=== PATIENT | female | born 1970 | race Caucasian/White ===

== ENCOUNTER 2024-08-21 13:41 | Inpatient (IN) | payer OTHER, SELFPAY ==
[2024-08-21 14:26] VITALS: BP 138/78; PULSE 73; RESP 18; TEMP 36.6; O2SAT 97
[2024-08-21 14:27] VITALS: BMI 26.8
[2024-08-21] MEDS: Nicotine Polacrilex Lozenge 4 MG LOZENGE BUCCAL ×2 (15:48→21:48)
[2024-08-21] MEDS: hydrOXYzine HCL 25 MG TABLET PO (15:49)
--- OUTSIDE RECORDS SUMMARY | 2024-08-21 16:15 | XMS_ITS | Encounter Summary ---
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 Name Role Phone Unavailable Primary Care Provider Unavailabl e Encounter Details Date Type Department Care Team (Late st Contact Info) Description 07/13/2011 Clinical Conversion Encounter GENERAL CONVERSION Clara Victoria MD Social History Tobacco Use Types Packs/Day Years Used Date Smoking Tobacco: Never Assessed Comments Unknown Sex and Gender Information Value Date Recorded Sex Assigned at Not on file Legal Sex Female 11:36 PM EDT Gender Identity Not on file Sexual Orientation Not on file documented as of this encounter Miscellaneous Notes * Psych Discharge Summary - Clara Victoria MD - 09/16/2014 8:02 AM EDT [facility] Name: ROSARIO LR # [id number] DISCHARGE SUMMARY : 70 Age: 41 Sex: F DIS IN Admit Date: 05/22/11 Disch Date: 06/02/11 Please refer to the admission note for full details. DISCHARGE DIAGNOSES: Loraine I: Depression, not otherwise specified. Posttraumatic stress disorder. Alcohol dependence. Loraine II: Deferred. Loraine III: Status post gastric bypass. Spinal stenosis. Loraine IV: Daughter hospitalized. Relapse onto alcohol. Loraine V: Admission GAF 20; discharge GAF 45. HOSPITAL COURSE: The patient was admitted to [facility] for safety, stabilization, dual diagnoses treatment and aftercare consolidation. She was started on a Librium detox protocol for alcohol detox. She was also started on a Risperdal trial for mood, anxiety and psychosis. Initially, she reported feeling depressed. She endorsed suicidal ideation. She endorsed self-injurious ideation. She endorsed auditory hallucinations of whispers telling her you shouldn't be here, your kids would be better off. She denied homicidal ideation. She reported one of her stressors was that she was facing DCF investigation. Her Risperdal dose was increased to 2 mg twice a day. She continued to endorse passive suicidal ideation with various thoughts of various plans but she denied having any intention to act because of her kids. She also endorsed cutting ideation. She reported that Risperdal helped her feel calmer and to sleep well. Informed consent was given for Thorazine trial for anxiety. The patient also requested an increase in her Prozac dose as well as her trazodone dose. Thorazine was ultimately not started and the patient did not take any doses due to the patient having an allergy to Navane. The patient was to meet with her DCF investigator welfare while in the hospital for support. She did meet with the DCF investigator welfare and was able to manage the stress. Her mood slowly began to improve. She continued to endorse suicidal ideation to drink herself to . She continued to endorse cutting and scratching ideation. She continued to endorse some auditory hallucinations of whispers. Her Risperdal dose was increased further to 3 mg twice a day. She did meet with the DCF investigator welfare and reported that the news that she heard during the meeting was not surprising i.e., if she relapses onto using alcohol, DCF will mandate services and action. The patient was trying to use safe coping skills to manage her stress. She felt somewhat ambivalent about returning home. By day of discharge, the patient felt well and ready for discharge. She reported that her daughter was coming home from being hospitalized at a psychiatric hospital and they will both be going to day treatment programs. She had finished her Librium detox protocol without problems. By day of discharge her mood was stated to be good. Her affect was constricted. She denied any further suicidal ideation. She denied any further auditory hallucinations. There was no homicidal ideation or visual hallucination. She denied having any cutting [facility] Name: ROSARIO LR MR # [id number] DISCHARGE SUMMARY continued D/C Date: 06/02/11 or scratching ideation. She was tolerating her psychiatric medications without side effects. She was discharged in a stable condition with aftercare in place. DISCHARGE MEDICATIONS: 1. Prozac 60 mg p.o. daily. 2. Feratab 325 mg p.o. b.i.d. 3. Risperdal 3 mg p.o. b.i.d. 4. Lactaid 1 caplet 3 times a day. 5. Seroquel 100 mg p.o. q.h.s. p.r.n. for sleep. 6. Seroquel 50 mg p.o. q. 4h p.r.n. for anxiety and agitation. 7. Vistaril 50 mg p.o. q. 4h p.r.n. for anxiety and agitation. DIET: Regular. ACTIVITY LEVEL: As tolerated and cautioned against using machinery. FOLLOWUP CARE: With Dr. Rollins at [facility] in [place], [place]; at the [facility] program in [place], [place] starting on June 03, 2011, and local meetings; with her substance abuse counselor, Toan Tejeda at [facility] in [place], [place], and with Michelle Reed her nurse practitioner at [facility] in [place], [place] on June 04, 2011. Ryan Jackson/[id number] DYLAN/[id number] DR: EDUAR ELECTRONICALLY SIGNED Clara Victoria M.D. documented in this encounter Plan of Treatment Not on file documented as of this encounter Visit Diagnoses Not on filedocumented in this encounter
--- NOTE | 2024-08-21 18:14 | PC.ADMIT ---
Rosario is a ?54 year old female who was an external admission to ? from [facility] this afternoon at 1:50pm. She was admitted with dx of MDD and SI. Rosario has had recent stressors and medication changes and this has precipitated increased depression and? SI. She reports multiple plans she's thought up such as going to [address] and having someone shoot me up, paying someone to kill me. She had written several suicide notes and recently starting cutting and self inflicted superficial razor desai? to her left forearm. Rosario has been sober for 9 years and does not use illicit drugs. She stopped smoking 2 years ago but still takes Nicotine patches and uses lozenges to deal with cravings. She attends a recovery program 4 x's per week and has been in [facility], has a therapist and medication prescriber. She lives with her marilynn Gamboa, her close segment producer and has an emotional support dog. Her tox screen was positive for benzos (takes prescribed Klonopin). She has a hx of? suicide attempt 10 years ago,? AUD, known seizure disorder- last gran mal sz was 8 months ago, HONEY - uses CPAP at (brought her own machine), PTSD, MDD, anxiety, hypotension,? Olivas rods placed in back (for scoliosis), and degenerative joint disease. Upon arrival on , she was quiet, subdued, and was cooperative with admission, signing a CV then 3 day with GEORGE Potter. She has passive SI and reports she could come to staff if she felt like hurting herself. She denies HI/AVH, VSS, signed MEREDITH, and skin check remarkable for razor desai to left FA, large purple?birthmark to left lower flank area, and a vertical back scar from back surgery long ago. Oriented to the unit, filled out menus, and reviewed home medications. Placed on 15 min checks and at night when on CPAP will be on 5 min checks.?
[2024-08-21] MEDS: clonazePAM 0.5 MG TABLET PO ×2 (18:45→21:42)
[2024-08-21 19:58] VITALS: BP 135/66; PULSE 83; RESP 18; TEMP 36.3; O2SAT 98
[2024-08-21] MEDS: Azelastine HCl Nasal 137 MCG/Spray 30 ML 2 SPRAY NOSTRIL-B (21:41)
[2024-08-21] MEDS: lamoTRIgine 25 MG TABLET 50 MG PO (21:42)
[2024-08-21] MEDS: lamoTRIgine 100 MG TABLET 200 MG PO (21:42)
[2024-08-21] MEDS: Lacosamide 100 MG TABLET 150 MG PO (21:48)
[2024-08-22] MEDS: Acetaminophen 325 MG TABLET 650 MG PO (06:08)
[2024-08-22] MEDS: Nicotine Polacrilex Lozenge 4 MG LOZENGE BUCCAL ×8 (06:09→22:15)
[2024-08-22 08:02] VITALS: BP 123/65; PULSE 70; RESP 16; TEMP 36.6; O2SAT 100
[2024-08-22 08:22] LABS: Estimated Average Glucose 111 mg/dL; Hemoglobin A1c % 5.5 % (<6.0); Total Hemoglobin (HGBA1C) 3433.5247 umol/L
[2024-08-22 08:27] LABS: Cholesterol 219 mg/dL (<200); HDL Cholesterol 76 mg/dL (>40); LDL Cholesterol Calculated 125 mg/dL (<100); Triglycerides 94 mg/dL (<150)
[2024-08-22] MEDS: Venlafaxine HCl ER 150 MG CAP.ER.24H PO (08:27)
[2024-08-22] MEDS: Azelastine HCl Nasal 137 MCG/Spray 30 ML 2 SPRAY NOSTRIL-B ×2 (08:27→20:02)
[2024-08-22] MEDS: Lacosamide 100 MG TABLET 150 MG PO ×2 (08:27→20:02)
[2024-08-22] MEDS: Docusate Sodium 100 MG CAPSULE PO (08:28)
[2024-08-22] MEDS: lamoTRIgine 25 MG TABLET 50 MG PO ×2 (08:28→20:01)
[2024-08-22] MEDS: clonazePAM 0.5 MG TABLET PO ×3 (08:28→20:02)
[2024-08-22] MEDS: Omeprazole 40 MG CAPSULE.DR PO (08:28)
[2024-08-22] MEDS: lamoTRIgine 100 MG TABLET 200 MG PO ×2 (08:28→20:02)
[2024-08-22] MEDS: Nicotine 21 MG PATCH.TD24 TRANSDERMA (08:29)
[2024-08-22 08:48] LABS: Free T4 (Free Thyroxine) 0.83 ng/dL (0.71-1.85); Thyroid Stimulating Hormone 0.79 uIU/mL (0.32-4.0)
[2024-08-22 08:58] LABS: Folate 12.5 ng/mL (> or = 4.0); Vitamin B12 694 pg/mL (200-900)
--- NOTE | 2024-08-22 10:34 | HO.PM.IMCN ---
History of Present Illness Data of Consult Service Date: 08/22/24 Primary Care Provider: Unknown Physician HPI Reason for consult: Medical H&P 54-year-old female with a past medical history of asthma, seizure disorder, GERD, ILD, Lung nodules, general anxiety disorder, PTSD, major depressive disorder who presented to ED at [facility] with increased depression and Passive SI. She reports a history of a seizure disorder, last seizure was 8 months ago. She also has a history of asthma, interstitial lung disease and lung nodules which she is followed outpatient at [facility] every 4 months by pulmonology. Her breathing has been stable. Patient has a history of EtOH use last use in 2018. Also has a history of back and neck pain. She receives cortisone injections in her neck every 6 months. Patient is cooperative and alert, engaging. She denies any issues except for chronic neck pain. She otherwise feels well no acute pulmonary exacerbation. She denies any chest pain, shortness of breath, dizziness lightheadedness or headaches. She is ambulating with a steady gait. No acute medical concerns. Review of Systems Review of Systems: Denies any shortness of breath, chest pain, dizziness, lightheadedness, abdominal pain or discomfort, nausea vomiting or diarrhea PMFSH Social History Household Members: Friend(s) Housing: Apartment Do you presently have visiting nurse or other home services: No Patient Tobacco Use Status: Former Tobacco user Tobacco use type: Cigarette Smoked in Last 30 Days: No e-Cigarette/Vaping Use: Never Used Patient Interested in Nicotine Replacement: Yes Patient Given Instructions on How to Stop Smoking: No Second Hand Smoke Exposure: No Currently Displaying Signs/Symptoms of Drug Intoxication Withdrawal: No Have you been hit, kicked, punched, or otherwise hurt by someone within the past year? If so, by whom?: No Do you feel safe in your current relationship?: No Current Relationship Is there a partner from a previous relationship who is making you feel unsafe now?: No Are you made to feel afraid or neglected: No Spiritual Healthcare Practices: none Mormonism Healthcare Practices: none Cultural Healthcare Practices: none Advance Directives: No Advance Directives Information Provided: No Do you have thoughts of harming others: None Do you have a plan to hurt others: No Plan Recently lost weight without trying: Unsure How much weight loss: Unsure Eating poorly because of decreased appetite: No Nutrition screen score: 4 Nutrition Risks: No Nutritional Risk Patient : No : No Poor oral hygiene: No Meds Allergies Allergy/AdvReac Type Severity Reaction Status Date / Time Phenothiazines Allergy Unknown Unknown Verified 08/21/24 14:33 quetiapine [From Seroquel] Allergy Unknown Unknown Verified 08/21/24 14:33 thiothixene Allergy Unknown Unknown Verified 08/21/24 14:33 varenicline Allergy Unknown Unknown Verified 08/21/24 14:33 Active Medications: Current Medications Acetaminophen (Acetaminophen 325 Mg Tablet) 650 mg PO Q6H PRN PRN Reason: Headache/Pain, Scale 1-10 Last Admin: 08/22/24 06:08 Dose: 650 mg Al Hydroxide/Mg Hydroxide (Magnesium Hydrox/Alum Hydrox 30 Ml Oral.Susp) 30 ml PO Q6H PRN PRN Reason: Heartburn/Nausea Albuterol Sulfate (Albuterol Sulfate 90 Mcg 8 Gm Inhaler) 2 puff INHALE Q4H PRN PRN Reason: Shortness Of Breath Azelastine HCl (Azelastine Hcl Nasal 137 Mcg/[place] 30 Ml) 2 spray NOSTRIL-B BID [facility] Last Admin: 08/22/24 08:27 Dose: 2 spray Clonazepam (Clonazepam 0.5 Mg Tablet) 0.5 mg PO TID [facility] Last Admin: 08/22/24 08:28 Dose: 0.5 mg Cyclobenzaprine HCl (Cyclobenzaprine Hcl 10 Mg Tablet) 10 mg PO BEDTIME PRN PRN Reason: Muscle Spasm Docusate Sodium (Docusate Sodium 100 Mg Capsule) 100 mg PO DAILY [facility] Last Admin: 08/22/24 08:28 Dose: 100 mg Fluticasone/Vilanterol (Fluticasone/Vilanterol 200/25 Blst.W.Dev) 1 puff INHALE RDAILY [facility] Hydroxyzine HCl (Hydroxyzine Hcl 25 Mg Tablet) 25 mg PO Q6H PRN PRN Reason: mild anxiety Last Admin: 08/21/24 15:49 Dose: 25 mg Lacosamide (Lacosamide 100 Mg Tablet) 150 mg PO BID [facility] Last Admin: 08/22/24 08:27 Dose: 150 mg Lamotrigine (Lamotrigine 100 Mg Tablet) 200 mg PO BID [facility] Last Admin: 08/22/24 08:28 Dose: 200 mg Lamotrigine (Lamotrigine 25 Mg Tablet) 50 mg PO BID [facility] Last Admin: 08/22/24 08:28 Dose: 50 mg Magnesium Hydroxide (Milk Of Magnesia 30 Ml Oral.Susp) 30 ml PO DAILY PRN PRN Reason: Constipation Nicotine (Nicotine 21 Mg Patch.Td24) 21 mg TRANSDERMA DAILY [facility] Last Admin: 08/22/24 08:29 Dose: 21 mg Nicotine Polacrilex (Nicotine Polacrilex Lozenge 4 Mg Lozenge) 4 mg BUCCAL Q2H PRN PRN Reason: Nicotine Cravings Last Admin: 08/22/24 09:00 Dose: 4 mg Non-Formulary Medication (Lubiprostone) 24 mcg PO BID [facility] Omeprazole (Omeprazole 40 Mg Capsule.Dr) 40 mg PO DAILY [facility] Last Admin: 08/22/24 08:28 Dose: 40 mg Ondansetron HCl (Ondansetron Odt 4 Mg Tab.Rapdis) 2 mg TRANSLINGU BID PRN PRN Reason: Nausea And Vomiting Trazodone HCl (Trazodone Hcl 50 Mg Tablet) 50 mg PO BEDTIME MRX1 PRN PRN Reason: Insomnia Venlafaxine HCl (Venlafaxine Hcl Er 150 Mg Cap.Er.24h) 150 mg PO DAILY [facility] Last Admin: 08/22/24 08:27 Dose: 150 mg Home Medications ?Medication ?Instructions ?Recorded ?Confirmed ?Last Taken ?Type albuterol sulfate 90 mcg/actuation 2 puff inhalation Q4H PRN 08/21/24 08/21/24 Unknown History aerosol inhaler (Ventolin HFA) Shortness Of Breath azelastine 137 mcg (0.1 %) nasal 2 spray intranasal BID 08/21/24 08/21/24 Unknown History spray clonazepam 0.5 mg tablet 0.5 mg PO TID 08/21/24 08/21/24 Unknown History cyclobenzaprine 10 mg tablet 10 mg PO BEDTIME PRN Muscle Spasm 08/21/24 08/21/24 Unknown History docusate sodium 100 mg capsule 100 mg PO DAILY 08/21/24 08/21/24 Unknown History fluticasone 500 mcg-salmeterol 50 1 ea inhalation DAILY 08/21/24 08/21/24 Unknown History mcg/dose blistr powdr for inhalation (Advair Diskus) lacosamide 150 mg tablet 150 mg PO BID 08/21/24 08/21/24 Unknown History lamotrigine 200 mg tablet 200 mg PO BID 08/21/24 08/21/24 Unknown History lamotrigine 25 mg tablet 50 mg PO BID 08/21/24 08/21/24 Unknown History loxapine succinate 5 mg capsule 5 mg PO DAILY 08/21/24 08/21/24 Unknown History lubiprostone 24 mcg capsule 24 mcg PO BID 08/21/24 08/21/24 Unknown History nicotine (polacrilex) 4 mg buccal 4 mg PO Q2H 08/21/24 08/21/24 Unknown History lozenge nicotine 14 mg/24 hr daily 1 patch topical DAILY 08/21/24 08/21/24 Unknown History transdermal patch omeprazole 40 mg capsule,delayed 40 mg PO DAILY 08/21/24 08/21/24 Unknown History release ondansetron 4 mg disintegrating 2 mg PO BID PRN Nausea And Vomiting 08/21/24 08/21/24 Unknown History tablet venlafaxine 150 mg 150 mg PO DAILY 08/21/24 08/21/24 Unknown History capsule,extended release 24 hr Physical Exam Vital Signs and Narrative: Vital Signs: Last Vital Signs Temp 97.8 F 08/22/24 08:02 Pulse 70 08/22/24 08:02 Resp 16 08/22/24 08:02 BP 123/65 08/22/24 08:02 Pulse Ox 100 08/22/24 08:02 O2 Del Method Room Air 08/22/24 08:02 BMI result Body Mass Index 26.8 Alert and oriented X3, able to give good history. Neuro: CN II-X11 intact, no deficits, visual acuity intact EYES: PERRLA, EOM intact ENT: Hearing intact, lips moist Cardiac: S1 S2 RRR, No ectopy Pulmonary: lungs clear to auscultation, No increased WOB. Abdominal: BS active in all 4 quadrants, no guarding or tenderness MSK: Strength 5/5 upper and lower extremities : Deferred Extremities: No edema in lower extremities Psych:Quiet and cooperative, maintains eye contact. Skin: Warm and dry, Intact Results Labs Labs: Laboratory Results - last 24 hr 08/22/24 07:41 Estimat Average Glucose 111 Hemoglobin A1c % 5.5 Magnesium 2.0 Triglycerides 94 Cholesterol 219 H LDL Cholesterol, Calc 125 H HDL Cholesterol 76 Vitamin B12 694 Folate 12.5 TSH 0.79 Free T4 0.83 Assessment and Plan (1) Tonic clonic epilepsy: Status: Acute Plan General anxiety disorder, PTSD, major depressive disorder Plan per psychiatric team Asthma, ILD, Lung nodules/History of PE/Smoking history Nicotine patch Followed by pulmonology outpatient Continue Home inhalers-Breo and PRN albuterol. Seizure disorder Last seizure reportedly 8 months ago. Continue Lamictal and Lacosimide GERD Continue Omeprazole daily Thank you for allowing me to participate in the care of this patient. Signing off at this time. Please reconsult of any acute concerns or issues arise
[2024-08-22] MEDS: Fluticasone/Vilanterol 200/25 BLST.W.DEV 1 PUFF INHALE (11:26)
[2024-08-22] MEDS: hydrOXYzine HCL 25 MG TABLET PO ×2 (11:27→18:19)
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
[2024-08-22 20:00] VITALS: BP 125/72; PULSE 88; TEMP 36.6; O2SAT 97
[2024-08-23 07:00] VITALS: BMI 26.7
[2024-08-23 08:23] VITALS: BP 113/67; PULSE 64; RESP 16; TEMP 36.5; O2SAT 98
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
[2024-08-23] MEDS: Azelastine HCl Nasal 137 MCG/Spray 30 ML 2 SPRAY NOSTRIL-B ×2 (08:46→23:47)
[2024-08-23] MEDS: Nicotine 21 MG PATCH.TD24 TRANSDERMA (08:46)
[2024-08-23] MEDS: Nicotine Polacrilex Lozenge 4 MG LOZENGE BUCCAL ×10 (08:47→23:49)
[2024-08-23] MEDS: Venlafaxine HCl ER 150 MG CAP.ER.24H PO (08:47)
[2024-08-23] MEDS: Fluticasone/Vilanterol 200/25 BLST.W.DEV 1 PUFF INHALE (08:47)
[2024-08-23] MEDS: Venlafaxine HCl ER 37.5 MG CAP.ER.24H PO (08:47)
[2024-08-23] MEDS: Lacosamide 100 MG TABLET 150 MG PO ×2 (08:47→23:45)
[2024-08-23] MEDS: lamoTRIgine 25 MG TABLET 50 MG PO ×2 (08:47→23:46)
[2024-08-23] MEDS: lamoTRIgine 100 MG TABLET 200 MG PO ×2 (08:48→23:46)
[2024-08-23] MEDS: Prazosin HCL 1 MG CAPSULE PO (08:48)
[2024-08-23] MEDS: Docusate Sodium 100 MG CAPSULE PO (08:48)
[2024-08-23] MEDS: clonazePAM 0.5 MG TABLET PO ×3 (08:48→21:24)
[2024-08-23] MEDS: Omeprazole 40 MG CAPSULE.DR PO (08:48)
[2024-08-23] MEDS: hydrOXYzine HCL 25 MG TABLET PO ×2 (10:10→23:49)
[2024-08-23 20:00] VITALS: BP 108/59; PULSE 80; RESP 16; TEMP 37.2; O2SAT 97
[2024-08-24] MEDS: Acetaminophen 325 MG TABLET 650 MG PO (05:54)
[2024-08-24] MEDS: Nicotine Polacrilex Lozenge 4 MG LOZENGE BUCCAL ×11 (05:55→21:35)
[2024-08-24 08:00] VITALS: BP 111/75; PULSE 64; RESP 16; TEMP 36.4; O2SAT 98
[2024-08-24] MEDS: lamoTRIgine 100 MG TABLET 200 MG PO ×2 (08:56→21:30)
[2024-08-24 08:57] VITALS: BP 111/75
[2024-08-24] MEDS: Venlafaxine HCl ER 150 MG CAP.ER.24H PO (08:57)
[2024-08-24] MEDS: Lacosamide 100 MG TABLET 150 MG PO ×2 (08:57→21:29)
[2024-08-24] MEDS: Prazosin HCL 1 MG CAPSULE PO (08:57)
[2024-08-24] MEDS: Venlafaxine HCl ER 37.5 MG CAP.ER.24H PO (08:57)
[2024-08-24] MEDS: lamoTRIgine 25 MG TABLET 50 MG PO ×2 (08:57→21:31)
[2024-08-24] MEDS: Docusate Sodium 100 MG CAPSULE PO (08:57)
[2024-08-24] MEDS: Azelastine HCl Nasal 137 MCG/Spray 30 ML 2 SPRAY NOSTRIL-B (08:58)
[2024-08-24] MEDS: Fluticasone/Vilanterol 200/25 BLST.W.DEV 1 PUFF INHALE (08:58)
[2024-08-24] MEDS: clonazePAM 0.5 MG TABLET PO ×3 (08:58→21:30)
[2024-08-24] MEDS: Omeprazole 40 MG CAPSULE.DR PO (08:58)
[2024-08-24] MEDS: Nicotine 21 MG PATCH.TD24 TRANSDERMA (09:57)
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
[2024-08-24] MEDS: hydrOXYzine HCL 25 MG TABLET PO (17:59)
[2024-08-24 19:57] VITALS: BP 109/66; PULSE 91; TEMP 37.6; O2SAT 97
[2024-08-24] MEDS: traZODone HCL 50 MG TABLET PO (21:31)
[2024-08-25] MEDS: Nicotine Polacrilex Lozenge 4 MG LOZENGE BUCCAL ×11 (07:09→22:25)
[2024-08-25] MEDS: hydrOXYzine HCL 25 MG TABLET PO ×2 (07:09→21:43)
[2024-08-25 08:40] VITALS: BP 125/66; PULSE 60; RESP 16; TEMP 36.1; O2SAT 99
[2024-08-25] MEDS: Fluticasone/Vilanterol 200/25 BLST.W.DEV 1 PUFF INHALE (08:43)
[2024-08-25] MEDS: Azelastine HCl Nasal 137 MCG/Spray 30 ML 2 SPRAY NOSTRIL-B (08:44)
[2024-08-25] MEDS: Lacosamide 100 MG TABLET 150 MG PO ×2 (08:45→21:41)
[2024-08-25] MEDS: Venlafaxine HCl ER 150 MG CAP.ER.24H PO (08:45)
[2024-08-25] MEDS: Docusate Sodium 100 MG CAPSULE PO (08:45)
[2024-08-25] MEDS: lamoTRIgine 100 MG TABLET 200 MG PO ×2 (08:45→21:41)
[2024-08-25] MEDS: lamoTRIgine 25 MG TABLET 50 MG PO ×2 (08:45→21:42)
[2024-08-25] MEDS: Venlafaxine HCl ER 37.5 MG CAP.ER.24H PO (08:45)
[2024-08-25] MEDS: clonazePAM 0.5 MG TABLET PO ×3 (08:45→21:43)
[2024-08-25] MEDS: Omeprazole 40 MG CAPSULE.DR PO (08:45)
[2024-08-25] MEDS: Prazosin HCL 1 MG CAPSULE 2 MG PO (08:46)
[2024-08-25] MEDS: Cyclobenzaprine HCl 10 MG TABLET PO ×2 (09:00→21:41)
[2024-08-25] MEDS: Nicotine 21 MG PATCH.TD24 TRANSDERMA (09:04)
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
[2024-08-25] MEDS: OLANZapine 2.5 MG TABLET PO ×2 (16:04→21:43)
[2024-08-25 20:00] VITALS: BP 113/68; PULSE 84; RESP 16; TEMP 37; O2SAT 96
[2024-08-25] MEDS: Acetaminophen 325 MG TABLET 650 MG PO (21:43)
[2024-08-26 08:35] VITALS: BP 117/56; PULSE 54; RESP 16; TEMP 36.3; O2SAT 95
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
[2024-08-26] MEDS: Fluticasone/Vilanterol 200/25 BLST.W.DEV 1 PUFF INHALE (09:11)
[2024-08-26] MEDS: Azelastine HCl Nasal 137 MCG/Spray 30 ML 2 SPRAY NOSTRIL-B ×2 (09:11→21:14)
[2024-08-26] MEDS: lamoTRIgine 100 MG TABLET 200 MG PO ×2 (09:13→20:14)
[2024-08-26] MEDS: Prazosin HCL 1 MG CAPSULE 2 MG PO (09:13)
[2024-08-26] MEDS: clonazePAM 0.5 MG TABLET PO ×3 (09:13→20:11)
[2024-08-26] MEDS: Venlafaxine HCl ER 37.5 MG CAP.ER.24H PO (09:13)
[2024-08-26] MEDS: Omeprazole 40 MG CAPSULE.DR PO (09:13)
[2024-08-26] MEDS: lamoTRIgine 25 MG TABLET 50 MG PO ×2 (09:13→20:11)
[2024-08-26] MEDS: Venlafaxine HCl ER 150 MG CAP.ER.24H PO (09:13)
[2024-08-26] MEDS: Docusate Sodium 100 MG CAPSULE PO (09:13)
[2024-08-26] MEDS: Lacosamide 100 MG TABLET 150 MG PO ×2 (09:13→20:11)
[2024-08-26] MEDS: Nicotine 21 MG PATCH.TD24 TRANSDERMA (09:14)
[2024-08-26] MEDS: Nicotine Polacrilex Lozenge 4 MG LOZENGE BUCCAL ×7 (09:14→21:41)
[2024-08-26] MEDS: OLANZapine 5 MG TABLET PO (13:06)
[2024-08-26 20:00] VITALS: BP 108/61; PULSE 91; TEMP 37.4; O2SAT 97
[2024-08-27] MEDS: clonazePAM 0.5 MG TABLET PO ×3 (06:23→20:24)
[2024-08-27] MEDS: Nicotine Polacrilex Lozenge 4 MG LOZENGE BUCCAL ×11 (06:23→22:09)
[2024-08-27 07:59] VITALS: BP 113/61; PULSE 87; TEMP 36.7; O2SAT 97
[2024-08-27] MEDS: Azelastine HCl Nasal 137 MCG/Spray 30 ML 2 SPRAY NOSTRIL-B ×2 (09:03→20:25)
[2024-08-27] MEDS: Fluticasone/Vilanterol 200/25 BLST.W.DEV 1 PUFF INHALE (09:03)
[2024-08-27] MEDS: Nicotine 21 MG PATCH.TD24 TRANSDERMA (09:03)
[2024-08-27] MEDS: Venlafaxine HCl ER 37.5 MG CAP.ER.24H PO (09:05)
[2024-08-27] MEDS: Venlafaxine HCl ER 150 MG CAP.ER.24H PO (09:05)
[2024-08-27] MEDS: lamoTRIgine 100 MG TABLET 200 MG PO ×2 (09:06→20:24)
[2024-08-27] MEDS: Docusate Sodium 100 MG CAPSULE PO (09:06)
[2024-08-27] MEDS: Lacosamide 100 MG TABLET 150 MG PO ×2 (09:06→20:24)
[2024-08-27] MEDS: Omeprazole 40 MG CAPSULE.DR PO (09:07)
[2024-08-27] MEDS: lamoTRIgine 25 MG TABLET 50 MG PO ×2 (09:07→20:24)
[2024-08-27] MEDS: Prazosin HCL 1 MG CAPSULE 2 MG PO (09:07)
[2024-08-27] MEDS: OLANZapine 5 MG TABLET PO ×2 (10:23→20:25)
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
[2024-08-27] MEDS: Acetaminophen 325 MG TABLET 650 MG PO (18:47)
[2024-08-27 19:46] VITALS: BP 115/70; PULSE 87; TEMP 36.7; O2SAT 98
[2024-08-27] MEDS: hydrOXYzine HCL 25 MG TABLET PO (20:24)
[2024-08-28 08:00] VITALS: BP 131/62; PULSE 62; RESP 16; TEMP 36.4; O2SAT 97
[2024-08-28] MEDS: Lacosamide 100 MG TABLET 150 MG PO ×2 (08:38→21:50)
[2024-08-28] MEDS: Venlafaxine HCl ER 150 MG CAP.ER.24H PO (08:39)
[2024-08-28] MEDS: Prazosin HCL 1 MG CAPSULE 2 MG PO (08:39)
[2024-08-28] MEDS: lamoTRIgine 100 MG TABLET 200 MG PO ×2 (08:39→21:50)
[2024-08-28] MEDS: Omeprazole 40 MG CAPSULE.DR PO (08:40)
[2024-08-28] MEDS: lamoTRIgine 25 MG TABLET 50 MG PO ×2 (08:40→21:50)
[2024-08-28] MEDS: Nicotine Polacrilex Lozenge 4 MG LOZENGE BUCCAL ×10 (08:41→22:31)
[2024-08-28] MEDS: clonazePAM 0.5 MG TABLET PO ×3 (08:41→21:51)
[2024-08-28] MEDS: Venlafaxine HCl ER 75 MG CAP.ER.24H PO (08:41)
[2024-08-28] MEDS: Docusate Sodium 100 MG CAPSULE PO (08:41)
[2024-08-28] MEDS: Nicotine 21 MG PATCH.TD24 TRANSDERMA (08:42)
[2024-08-28] MEDS: Fluticasone/Vilanterol 200/25 BLST.W.DEV 1 PUFF INHALE (08:43)
[2024-08-28] MEDS: Azelastine HCl Nasal 137 MCG/Spray 30 ML 2 SPRAY NOSTRIL-B (08:43)
[2024-08-28] MEDS: hydrOXYzine HCL 25 MG TABLET PO (09:29)
[2024-08-28] MEDS: OLANZapine 5 MG TABLET PO ×3 (09:29→21:51)
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
[2024-08-28 19:49] VITALS: BP 120/69; PULSE 94; TEMP 37.1; O2SAT 97
[2024-08-28] MEDS: traZODone HCL 50 MG TABLET PO (21:51)
[2024-08-29] MEDS: OLANZapine 5 MG TABLET PO ×2 (06:16→09:23)
[2024-08-29] MEDS: Nicotine Polacrilex Lozenge 4 MG LOZENGE BUCCAL ×5 (06:16→12:01)
[2024-08-29 08:01] VITALS: BP 126/67; PULSE 74; RESP 16; TEMP 36.1; O2SAT 97
[2024-08-29] MEDS: Venlafaxine HCl ER 150 MG CAP.ER.24H PO (08:08)
[2024-08-29] MEDS: Lacosamide 100 MG TABLET 150 MG PO (08:08)
[2024-08-29] MEDS: Prazosin HCL 1 MG CAPSULE 2 MG PO (08:08)
[2024-08-29] MEDS: lamoTRIgine 100 MG TABLET 200 MG PO (08:08)
[2024-08-29] MEDS: Docusate Sodium 100 MG CAPSULE PO (08:09)
[2024-08-29] MEDS: Omeprazole 40 MG CAPSULE.DR PO (08:09)
[2024-08-29] MEDS: Azelastine HCl Nasal 137 MCG/Spray 30 ML 2 SPRAY NOSTRIL-B (08:09)
[2024-08-29] MEDS: Fluticasone/Vilanterol 200/25 BLST.W.DEV 1 PUFF INHALE (08:09)
[2024-08-29] MEDS: clonazePAM 0.5 MG TABLET PO (08:09)
[2024-08-29] MEDS: lamoTRIgine 25 MG TABLET 50 MG PO (08:09)
[2024-08-29] MEDS: Venlafaxine HCl ER 75 MG CAP.ER.24H PO (08:09)
[2024-08-29] MEDS: Nicotine 21 MG PATCH.TD24 TRANSDERMA (08:54)
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
[2024-08-29] MEDS: Cyclobenzaprine HCl 10 MG TABLET PO (09:22)
== END 2024-08-29 12:29 | disposition home or self-care (01) | DRG 751 ==
PROVIDERS: Clinical Nurse Specialist Psychiatric/Mental Health, Adult; Admitting Provider Psychiatry & Neurology Psychiatry; Visit Provider Nurse Practitioner Psychiatric/Mental Health
DX: F33.1 Major depressive disorder, recurrent, moderate (principal); G40.409 Other generalized epilepsy and epileptic syndromes, not intractable, without status epilepticus; F17.210 Nicotine dependence, cigarettes, uncomplicated; Z71.6 Tobacco abuse counseling; J45.909 Unspecified asthma, uncomplicated; F41.1 Generalized anxiety disorder; F43.10 Post-traumatic stress disorder, unspecified; Z79.51 Long term (current) use of inhaled steroids; Z79.899 Other long term (current) drug therapy
CPT/HCPCS: 36415; 80061; 82607; 82746; 83036; 83735; 84439; 84443

== ENCOUNTER → 2024-08-21 13:41 | Outpatient (BNV) | payer OTHER, SELFPAY | PROVIDERS: Admitting Provider Psychiatry & Neurology Psychiatry; Visit Provider Nurse Practitioner Family | DX: G40.409 Other generalized epilepsy and epileptic syndromes, not intractable, without status epilepticus (principal) | CPT/HCPCS: 99221 ==

== ENCOUNTER → 2024-08-21 13:41 | Outpatient (BNV) | payer OTHER, SELFPAY | PROVIDERS: Admitting Provider Psychiatry & Neurology Psychiatry; Visit Provider Nurse Practitioner Psychiatric/Mental Health | DX: F33.1 Major depressive disorder, recurrent, moderate (principal); F41.1 Generalized anxiety disorder; F43.11 Post-traumatic stress disorder, acute; G40.409 Other generalized epilepsy and epileptic syndromes, not intractable, without status epilepticus; J45.909 Unspecified asthma, uncomplicated; K21.9 Gastro-esophageal reflux disease without esophagitis | CPT/HCPCS: 99232 ==